=== PATIENT | male | born 2000 | race Caucasian/White ===

== ENCOUNTER 2024-09-21 18:39 | Emergency (ER) | payer SELFPAY ==
[2024-09-22] MEDS ORDERED: CLOT15CR73 TOP (05:25)
[2024-09-22] MEDS ORDERED: FLUC100T PO (05:26)
== END 2024-09-21 19:50 | disposition left against medical advice (07) ==
LOC: ER 18:40
DX: H92.09 Otalgia, unspecified ear (principal); Z53.21 Procedure and treatment not carried out due to patient leaving prior to being seen by health care provider

== ENCOUNTER 2024-09-22 05:05 | Emergency (ER) | payer MEDICAID ==
[~2024-09-22] VITALS: Ht 175.3 cm; Wt 54.0 kg
[2024-09-22 05:07] VITALS: BP 145/65; PULSE 89; RESP 15; TEMP 96.3; O2SAT 99
--- NOTE | 2024-09-22 05:20 | Physician Documentation ---
History of Present Illness ~ Chief Complaint: Foot pain Stated Complaint: FEET PAIN Time Seen by MD: 05:19 OK to notify your PCP?: Yes Source: patient, RN/MD, RN notes reviewed, old records Mode of Arrival: POV Exam Limitations: no limitations HPI This patient is a 23 y/o male who presents to ED with chief complaint of foot pain. Patient states he is here for peeling to the bottom of his feet and pain when walking. Patient is homeless and is on his feet walking most of the day. He does not have a primary care doctor, stating he is from out of town. Pateint was here earlier today for ear pain, but now complains of foot pain. Also requesting a sandwich. Patient denies any other associated symptoms at this time. Patient denies any other alleviating or exacerbating factors. Medication Reconciliation Allergies: Coded Allergies: No Known Allergies (Unverified , 09/22/24) Scheduled Clotrimazole/Betamet Diprop Cream* (Lotrisone Cream*), 1 APPLIC TOP Q12H Fluconazole* (Diflucan*), 1 TAB PO DAILY Review of Systems All Other Systems at this time: Reviewed and Negative Physical Exam Vital Signs: RN Vital Signs have been reviewed: Yes, Temperature: 96.3, Source: Temporal, Heart Rate: 89, Respiratory Rate: 15, BP: 145/65, Pulse Oximetry: 99, Weight: 54.050 Physical Exam General: The patient is well developed, well nourished, nontoxic appearing and is in no acute distress. Skin: [place], warm and dry with no rashes. HEENT: Head was normocephalic and atraumatic. Eyes - pupils equal, round, reactive to light and accommodation. Extraocular movements were intact. Conjunctivae were nonicteric. The mouth and oropharynx were clear with moist mucous membranes. There were no pharyngeal exudates or erythema. Neck: Supple and nontender. There was no jugular venous distention, l ymphadenopathy, thyromegaly or masses. Chest: Clear to auscultation bilaterally without wheezes, rales or rhonchi. No accessory muscle use. No dullness to percussion. Heart: Rate regular and rhythmic. S1, S2. No murmurs. Palpation of the chest wall was normal. No rubs or thrills. Abdomen: Soft, nontender and nondistended. Positive bowel sounds. No guarding or rebound. No hepatosplenomegaly or palpable masses. Extremities: Bilateral feet have redness between the toes. Sour, smelly odor from feet. No swelling. No open wounds. No cyanosis, clubbing or edema. The patient moves all extremities. Pulses were equal and symmetric. Neurologic: Motor and sensation grossly intact. A & O x4. Psychologic: Flat affect. Otherwise the patient was oriented to person, place and time. Progress Results/Orders Reviewed/noted all lab results: Yes Results/Orders Completed Orders - RODRIGO MORENO MD Naproxen Tablet (Naprosyn Tablet) (09/22/24 05:25) Fluconazole Tablet (Diflucan Tablet) (09/22/24 05:25) Vital Signs 09/22/24 05:07 Temp 96.3 Pulse 89 Resp 15 B/P (MAP) 145/65 Pulse Ox 99 Re-Evaluation Re-Evaluation : Re-Evaluation: Improved Progress Patient was seen and examined. Patient is given reassurance. Patient was just seen here hours ago complaining for ear pain. He is homeless new to the area traveling through [facility]. Patient comes 2nd time complaining of foot pain. On exam he has athlete's foot fungus no socks poor hygiene. Patient was given naproxen for his foot pain also given Diflucan . Prescription for antifungals was written as well as naproxen. Patient was then discharged home. Socks were provided. Medical Decision Making Additional info obtained from: old records Foot Diff Dx:Considerations: Include: Abrasion, Arthritis, Cellulitis, Contusion, Dislocation, DJD, Fracture-metatarsal, Fracture-phalynx, Fracture- tarsal, Gout, Sprain, Subungual hematoma, Other Departure Time of Disposition: 05:28 Disposition: HOME / SELF CARE / HOMELESS Impression: Primary Impression: Tinea pedis Qualified Codes: B35.3 - Tinea pedis Additional Impression: Homelessness Condition: Stable Discharge Instructions: Foot Pain Additional Instructions: Please follow up with the [facility], which can provide a variety of medical services and other resources. You may also look into staying at the [facility] here in [facility], for a place to stay. Paperwork with the information for these services is included in your paperwork. Prescriptions Fluconazole* (Diflucan*) 100 Mg Tablet 1 TAB PO DAILY for 5 Days, #5 TAB Prov: RODRIGO MORENO MD 09/22/24 Clotrimazole/Betamet Diprop Cream* (Lotrisone Cream*) 15 Gm Tube 1 APPLIC TOP Q12H for 7 Days, #30 GM apply to affected area(s) Prov: RODRIGO MORENO MD 09/22/24 Education Educated: Patient Educated regarding: diagnosis, treatment, need for follow up Signature Scribe Signature: Scribed for Rodrigo Moreno MD by Ayla Stone . 09/22/24 05:24 Attestation: The note accurately reflects work and decisions made by me.Rodrigo Moreno MD 09/22/24 05:20 RODRIGO MORENO MD Sep 22, 2024 05:20
[2024-09-22] MEDS ORDERED: CLOT15CR73 TOP (05:25)
[2024-09-22] MEDS ORDERED: FLUC100T PO (05:26)
== END 2024-09-22 06:10 | disposition home or self-care (01) ==
LOC: ER 05:05
DX: B35.3 Tinea pedis (principal); Z59.00 Homelessness unspecified; Z79.899 Other long term (current) drug therapy
CPT/HCPCS: 99283

== ENCOUNTER 2024-10-09 11:23 | Emergency (ER) | payer MEDICAID ==
[~2024-10-09] VITALS: Ht 177.8 cm; Wt 55.8 kg
[2024-10-09 11:32] VITALS: TEMP 98.9
[2024-10-09] MEDS ORDERED: SULF1TAB49 PO (11:45)
[2024-10-09] MEDS ORDERED: CEPH-585 PO (11:45)
--- NOTE | 2024-10-09 11:46 | Physician Documentation ---
History of Present Illness ~ Chief Complaint: Wound Stated Complaint: FOOT PAIN Time Seen by MD: 11:40 HPI This is a 24-year-old male that reports to the emergency department for evaluation of wounds to bilateral feet. Reports that he feels like they might be bug bites or spider bites. Wound to the dorsal aspect of the left foot has purulent drainage. Patient denies fevers chills nausea vomiting or any other symptoms today. Reports that he is living at the [facility] he is unsure if he has been exposed to MRSA or not. This prior to discharge, the patient reported that he would like information on suicide prevention. A conversation regarding this the patient says that he feels suicidal and has developed a plan of stabbing himself. Patient does not want to hurt anyone else just himself at this time. Tetanus within 5 years?: Yes Medication Reconciliation Allergies: Coded Allergies: No Known Allergies (Unverified , 09/22/24) Scheduled Cephalexin*Monohydrate* (Keflex*), 1 CAP PO QID Sulfamethoxazole/Trimethoprim (Bactrim Ds Tablet), 1 TAB PO Q12H Review of Systems ROS As stated above in the HPI, otherwise all systems are reviewed and negative. Physical Exam Vital Signs: Temperature: 98.9, Source: Temporal, Heart Rate: 90, Respiratory Rate: 16, BP: 112/75, Pulse Oximetry: 99, Weight: 55.800 Physical Exam VITALS: Reviewed and as above. GENERAL: Alert, no apparent distress. HEENT: Normocephalic, atraumatic, PERRL, EOMI, dry mucosa, no erythema RESPIRATORY: Lungs clear, normal breath sounds, no respiratory distress. CHEST: No accessory muscle use, no retractions CV: Regular rate, rhythm, no edema, no murmur, No: JVD GI: Soft, non-tender, bowels sounds present, no rebound, guarding, or rigidity BACK: No CVA tenderness, or swelling MUSCULOSKELETAL No deformities, no edema SKIN: Warm and dry, erythema and edema noted to the dorsal aspect of bilateral feet. Purulent drainage to the wound on the dorsal aspect of the left foot. NEURO: Oriented x4, No motor or sensory deficit PSYCH: Normal mood and affect, no agitation Progress Progress Note 1. This patient presents with a painful fluid pocket with fluctuance and surrounding induration and erythema, concerning for an abscess of left forearm. The abscess was cleaned and purulence was expressed. There is no lymphangitic spread visible. Low concern for osteomyelitis. Patient is not immunocompromised, and there is no bullae, pain out of proportion, or rapid progression concerning for necrotizing fasciitis. Patient to be discharged home with Bactrim and Keflex with follow up with their PMD. Patient will return to the emergency department with any worsening or recurrent symptoms or any additional concerning symptoms that we discussed here today i.e. fevers chills nausea vomiting or any other concerning symptoms. Patient will follow up with primary care provider. Patient will return to the emergency department if he has any worsening of his current symptoms or any additional concerning symptoms that we discussed here today i.e. fever chills nausea vomiting increased swelling increased pain red streaking up extremity or any other concerning symptoms. 2. Patient reported suicidal ideation and a plan to commit suicide just prior to discharge. Patient underwent medical clearance for mental health evaluation. Transfer orders for [facility]: At this time there is no evidence of an emergent medical condition that would preclude (admission/transfer) to a psychiatric unit via [facility] protocol for further psychiatric, as well as medical evaluation and treatment. At this time I have no reason to believe that transfer via [facility] protocol would have serious medical compromise in the patient's health. Patient will be given 1st doses of antibiotics here in the emergency department since his discharge status has changed to inpatient for mental health evaluation. Patient seen by services. Resources given to patient. Deemed safe for discharge. Safety plan reviewed Results/Orders Results/Orders Medications Received in ER Medications (Trade) Dose Ordered Sig/Anupama Route PRN Reason Start Time Stop Time Status Last Admin Dose Admin (Keflex capsule) 500 mg ONCE ONCE PO 10/09/24 16:45 10/09/24 16:47 DC 10/09/24 17:10 500 MG (Septra DS tab) 1 tab ONCE ONCE PO 10/09/24 16:45 10/09/24 16:47 DC 10/09/24 17:10 1 TAB Vital Signs 10/09/24 11:32 Temp 98.9 Pulse 90 Resp 16 B/P (MAP) 112/75 Pulse Ox 99 Laboratory Tests Test 10/09/24 12:36 10/09/24 14:14 10/09/24 14:33 White Blood Count 11.8 H Red Blood Count 4.05 L Hemoglobin 12.3 L Hematocrit 37.2 L Mean Corpuscular Volume 91.7 Mean Corpuscular Hemoglobin 30.3 Mean Corpuscular Hemoglobin Concent 33.1 Red Cell Distribution Width 14.2 Platelet Count 195 Mean Platelet Volume 8.8 Neutrophils (%) (Auto) 79.0 H Lymphocytes (%) (Auto) 13.7 L Monocytes (%) (Auto) 6.0 Eosinophils (%) (Auto) 1.0 Basophils (%) (Auto) 0.3 Neutrophils # (Auto) 9.3 H Lymphocytes # (Auto) 1.6 Monocytes # (Auto) 0.7 Eosinophils # (Auto) 0.1 Basophils # (Auto) 0.0 CBC Comment Sodium Level 143 Potassium Level 3.6 Chloride Level 109 H Carbon Dioxide Level 28.8 Anion Gap 5 L Blood Urea Nitrogen 14 Creatinine 0.73 Estimated GFR/1.73 m2 > 90 BUN/Creatinine Ratio 19.2 Glucose Level 85 Calcium Level 8.4 L Albumin 3.0 L Thyroid Stimulating Hormone (TSH) 0.31 L Chemistry Comments Acetaminophen Level < 2.0 L Ethyl Alcohol Level < 10 Urine Specimen Description Non-specified Urine Color Yellow Urine Clarity Clear Urine pH 6.5 Urine Specific [place] 1.010 Urine Protein Negative Urine Glucose (UA) Negative Urine Ketones Negative Urine Occult Blood Negative Urine Nitrite Negative Urine Bilirubin Negative Urine Urobilinogen 1.0 Urine Leukocyte Esterase Negative Volume Urine Centrifuged 10 ml Urine Comment Urine Opiates Screen Negative Urine Methadone Screen Negative Urine Fentanyl Screen Negative Urine Barbiturates Screen Negative Urine Phencyclidine Screen Negative Urine Amphetamines Screen Negative Urine Benzodiazepines Screen Negative Urine Cocaine Screen Negative Urine Cannabinoids Screen Negative Drug Screen Comment SARS-CoV-2 Antigen (Rapid) Positive A Medical Decision Making Findings This patient presents with a painful fluid pocket with fluctuance and surrounding induration and erythema, concerning for an abscess of left forearm. The abscess was cleaned and purulence was expressed. There is no lymphangitic spread visible. Low concern for osteomyelitis. Patient is not immunocompromised, and there is no bullae, pain out of proportion, or rapid progression concerning for necrotizing fasciitis. Patient to be discharged home with Bactrim and Keflex with follow up with their PMD. Patient will return to the emergency department with any worsening or recurrent symptoms or any additional concerning symptoms that we discussed here today i.e. fevers chills nausea vomiting or any other concerning symptoms. Departure Disposition: HOME / SELF CARE / HOMELESS Impression: Primary Impression: Wound Additional Impressions: Abscess Edema Wound drainage Suicidal ideation Discharge Instructions: Skin Abscess, Suicidal Feelings: How to Help Yourself Additional Instructions: Referrals: NO PRIMARY CARE PROVIDER (PCP) Prescriptions Cephalexin*Monohydrate* (Keflex*) 500 Mg Capsule 1 CAP PO QID for 7 Days, #28 CAP Prov: LIBORIO LAU 10/09/24 Sulfamethoxazole/Trimethoprim (Bactrim Ds Tablet) 800 Mg-160 Mg Tablet 1 TAB PO Q12H for 10 Days, #20 TAB Prov: LIBORIO LAU 10/09/24 Education Educated: Patient Educated regarding: diagnosis, treatment, need for follow up Signature Scribe Signature: A Attestation: The note accurately reflects work and decisions made by me.Hong Gutierrez MD 10/09/24 18:26 Scribed for Emergency,Department by DANNIELLE Llanos . 10/09/24 11:45 LIBORIO LAU Oct 09, 2024 11:46 HONG GUTIERREZ MD Oct 09, 2024 18:26
[2024-10-09 12:49] LABS: MEAN PLATELET VOLUME 8.8 FL (7.4-10.4); RED CELL DISTRIBUTION WIDTH 14.2 % (11.5-14.5)
[2024-10-09 13:16] LABS: CREATININE 0.73 MG/DL (0.60-1.10); TOTAL CARBON DIOXIDE 28.8 MMOL/L (24-32); eCRCL 123 ML/MIN; eGFR > 90 ML/MIN
[2024-10-09 13:27] LABS: ETHANOL < 10 MG/DL (<10)
[2024-10-09 14:35] LABS: LEUKOCYTE ESTERASE ,URINE NEGATIVE (Neg); NITRITES, URINE NEGATIVE (Neg); OCCULT BLOOD,URINE NEGATIVE (Neg)
[2024-10-09 14:36] LABS: URINE AMPHETAMINE SCREEN NEGATIVE (Neg); URINE BARBITUATE SCREEN NEGATIVE (Neg); URINE BENZODIAZEPINES SCREEN NEGATIVE (Neg); URINE CANNABINOID SCREEN NEGATIVE (Neg); URINE COCAINE SCREEN NEGATIVE (Neg); URINE METHADONE SCREEN NEGATIVE (Neg); URINE OPIATE SCREEN NEGATIVE (Neg); URINE PHENCYCLIDINE SCREEN NEGATIVE (Neg)
[2024-10-09 14:37] LABS: UA COLLECTION TYPE NON-SPECIFIED
[2024-10-09] MEDS: sulfamethoxazole/trimethoprim DS (800/160mg) tablet PO ONE (17:10)
[2024-10-09 19:11] VITALS: BP 135/84; PULSE 76; RESP 18; O2SAT 96
[2024-10-10] MEDS ORDERED: SULF1TAB49 PO (09:30)
== END 2024-10-09 19:12 | disposition home or self-care (01) ==
LOC: ER 11:23
DX: U07.1 COVID-19 (principal); R60.9 Edema, unspecified; R45.851 Suicidal ideations
CPT/HCPCS: 36415; 80048; 80305; 80320; 80329; 81003; 84443; 85025; 87811; 99283

== ENCOUNTER 2024-10-10 07:38 | Emergency (ER) | payer MEDICAID ==
[~2024-10-10] VITALS: Ht 177.8 cm; Wt 66.0 kg
[~2024-10-10 07:38] MED LIST: CEPH-585 PO; SULF1TAB49 PO
[2024-10-10 07:44] VITALS: BP 134/83; PULSE 93; RESP 16; O2SAT 100
[2024-10-10] MEDS ORDERED: SULF1TAB49 PO (09:30)
--- NOTE | 2024-10-10 09:30 | Physician Documentation ---
History of Present Illness ~ Chief Complaint: Wound Re-Check Stated Complaint: SWOLLEN FEET Time Seen by MD: 09:16 Source: patient Mode of Arrival: Ambulatory Exam Limitations: no limitations HPI 24-year-old male with wound to his right foot with swelling and redness. Tetanus within 5 years?: Yes Medication Reconciliation Allergies: Coded Allergies: No Known Allergies (Unverified , 09/22/24) Scheduled Cephalexin*Monohydrate* (Keflex*), 1 CAP PO QID Sulfamethoxazole/Trimethoprim (Bactrim Ds Tablet), 1 TAB PO Q12H Past Medical History Past Medical History: No Pertinent History Past Surgical History: no surgical history Lives In: Homeless Occupation: unemployed Review of Systems All Other Systems at this time: Reviewed and Negative Integumentary: Reports: see HPI Physical Exam Vital Signs: RN Vital Signs have been reviewed: Yes, Temperature: 97.4, Source: Temporal, Heart Rate: 93, Respiratory Rate: 16, BP: 134/83, Pulse Oximetry: 100, Weight: 66.000 General Appearance: alert, WD/WN, no apparent distress Cardiovascular: regular rate, rhythm Respiratory: lungs clear, normal breath sounds, no respiratory distress Chest: no accessory muscle use Skin Erythema with induration to a centralized lesion to the right foot on the dorsal aspect. Good peripheral pulse sensation and circulation intact distally Progress Results/Orders Results/Orders Vital Signs 10/10/24 07:44 Temp 97.4 Pulse 93 Resp 16 B/P (MAP) 134/83 Pulse Ox 100 Medical Decision Making Findings Wound to top of foot with induration erythema and warmth cellulitis clean socks and dressing Differential Dx:Considerations: Include: Cellulitis Departure Time of Disposition: 09:28 Disposition: HOME / SELF CARE / HOMELESS Impression: Primary Impression: Cellulitis Condition: Stable Discharge Instructions: Wound Care, Adult Additional Instructions: Take antibiotics as prescribed keep dressing on wound continue to monitor and f ollow up with primary care or the [facility] Referrals: NO PRIMARY CARE PROVIDER (PCP) Prescriptions Sulfamethoxazole/Trimethoprim (Bactrim Ds Tablet) 800 Mg-160 Mg Tablet 1 TAB PO Q12H for 10 Days, #20 TAB Prov: HEATHER CASTREJON NP 10/10/24 Education Educated: Patient Educated regarding: diagnosis, treatment, need for follow up Signature Scribe Signature: No Scribe Attestation: The note accurately reflects work and decisions made by me.Heather SPICER 10/10/24 09:30 HEATHER CASTREJON NP Oct 10, 2024 09:30
[2024-10-10] MEDS: bacitracin 15gm ointment TP ONE (09:39)
[2024-10-10] MEDS: amox tr/potassium clavulanate 875/125mg TAB PO ONE (09:39)
[2024-10-10 09:43] VITALS: TEMP 97.4
== END 2024-10-10 09:45 | disposition home or self-care (01) ==
LOC: ER 07:39
DX: L03.115 Cellulitis of right lower limb (principal)
CPT/HCPCS: 99283

== ENCOUNTER 2024-10-12 09:33 | Emergency (ER) | payer MEDICAID ==
[~2024-10-12] VITALS: Ht 177.8 cm; Wt 67.5 kg
[2024-10-12 09:36] VITALS: BP 115/69; PULSE 89; RESP 16; TEMP 98.6; O2SAT 99
--- NOTE | 2024-10-12 09:47 | Physician Documentation ---
History of Present Illness ~ Chief Complaint: Foot pain Stated Complaint: FEET PAIN Time Seen by MD: 09:42 OK to notify your PCP?: Yes Source: patient Mode of Arrival: POV Exam Limitations: no limitations HPI 24-year-old male presents with wounds to the top of the left and right arch of the foot which both appeared a few days ago. He states a both started like a bug bite and then have opened and started draining however due to the location it appears to have been caused by ill-fitting shoes. He denies any fever, nausea, vomiting, diarrhea. Tetanus witin 5 years: Yes Medication Reconciliation Allergies: Coded Allergies: No Known Allergies (Unverified , 09/22/24) Scheduled Cephalexin*Monohydrate* (Keflex*), 1 CAP PO QID Cephalexin*Monohydrate* (Keflex*), 1 CAP PO Q8H Sulfamethoxazole/Trimethoprim (Bactrim Ds Tablet), 1 TAB PO Q12H Sulfamethoxazole/Trimethoprim (Bactrim Ds Tablet), 1 TAB PO Q12H Sulfamethoxazole/Trimethoprim (Septra Ds Tab), 1 TAB PO Q12H Past Medical History Past Medical History: No Pertinent History Past Surgical History: no surgical history Lives In: Homeless Occupation: unemployed Physical Exam Vital Signs: RN Vital Signs have been reviewed: Yes, Temperature: 98.6, Source: Temporal, Heart Rate: 89, Respiratory Rate: 16, BP: 115/69, Pulse Oximetry: 99, Weight: 67.500 Oxygen Flow Rate: 0 Pulse Oximetry Reflects: adequate oxygenation Physical Exam General: Alert, no distress. HEENT: No injection, moist mucous membranes. Neck: Full range of motion. Respiratory: No respiratory distress, equal chest rise and fall. Chest: No accessory muscle use. Cardiovascular: Regular rate and rhythm. Gastrointestinal: Nondistended. Extremities: Normal range of motion, no deformity. Neurologic: Oriented x4. Psychiatric: Normal mood and affect. Skin: Normal color, warm and dry. Bilateral, symmetrical open/draining wounds to top of feet at the medial superior portion of the arch of the foot overlying the tarsal bones. Both sites have areas of erythema with no clear line of demarcation. there is warmth and serous drainage. Progress Results/Orders Reviewed/noted all lab results: Yes Results/Orders Completed Orders - JES BRINKP Bacitracin Ointment (Bacitracin Ointment (10/12/24 09:45) Sulfamethox/Trimetho. Ds Tab (Septra Ds (10/12/24 09:45) Cephalexin Capsule (Keflex Capsule) (10/12/24 09:45) Vital Signs 10/12/24 09:36 Temp 98.6 Pulse 89 Resp 16 B/P (MAP) 115/69 Pulse Ox 99 O2 Flow Rate 0 Medical Decision Making Additional info obtained from: old records Findings 24-year-old male with bilateral foot wounds. He was wearing [facility] socks and large crocs. There is localized erythema and warmth but there is no erythema spreading up the leg. His vital signs are stable and he is afebrile and nontoxic appearing. We discussed that he needs more supportive shoes. I ordered bacitracin to be applied to the sites with a Band-Aid over as well as gave 1st dose of Keflex and Bactrim. Due to the redness and serous drainage, I am suspicious for possible MRSA. There was no signs of sepsis. He is a homeless individual and does not have adequate hygiene. Given very strict return instructions if there was no improvement in 72 hours he needs to return. He agrees with this plan. Foot Diff Dx:Considerations: Include: Abrasion, Dislocation, Gout, Hematoma, Laceration, Neurovascular injury, Puncture, Septic Departure Disposition: 01 HOME / SELF CARE / HOMELESS Impression: Primary Impression: Cellulitis Condition: Stable Discharge Instructions: Cellulitis Additional Instructions: Please keep wounds clean and dry, apply the bacitracin to the wounds. Monitor for any signs of worsening redness despite antibiotic use as if this occurs please return immediately. Follow up with your primary care provider or the [facility] within the next 3 days. Return back here for any new or worsening symptoms. Referrals: NO PRIMARY CARE PROVIDER (PCP) Prescriptions Sulfamethoxazole/Trimethoprim (Septra Ds Tab) 800 Mg/160 Mg Tablet 1 TAB PO Q12H for 10 Days, #20 TAB Prov: JES BRINK 10/12/24 Cephalexin*Monohydrate* (Keflex*) 500 Mg Capsule 1 CAP PO Q8H for 10 Days, #30 CAP Prov: JES BRINKP 10/12/24 Education Educated: Patient Educated regarding: diagnosis, treatment, prognosis, need for follow up Additional Comment Medical Screen Exam This patient recieved a medical screening examination. After reviewing the [facility]'s medical complaints with presenting symptoms and performing an appropriate physical examination, it was determined that no immediate life- threatening emergency medical condition is present. This individual is also not a women having contractions. Signature Scribe Signature: . Attestation: Scribed for Jes Brink Business Excellence Leader by Jes Miguel NP . 10/12/24 09:55 Parts of this note were created using [employer] voice recognition software program. While efforts were made to correct any mistakes made by this voice recognition software program, nonsensical phrases may remain in this note. In addition, there may be errors and syntax, grammar, content and spelling. JES BRINK ADVERTISING PROJECT MANAGER Oct 12, 2024 09:47
[2024-10-12] MEDS ORDERED: CEPH-585 PO (09:48)
[2024-10-12] MEDS ORDERED: SULF1TAB45 PO (09:48)
[2024-10-12] MEDS: bacitracin 15gm ointment TP ONE (09:52)
[2024-10-12] MEDS: sulfamethoxazole/trimethoprim DS (800/160mg) tablet PO ONE (09:52)
== END 2024-10-12 09:58 | disposition home or self-care (01) ==
LOC: ER 09:34
DX: L03.116 Cellulitis of left lower limb (principal); L03.115 Cellulitis of right lower limb
CPT/HCPCS: 99284

== ENCOUNTER 2024-10-21 09:26 | Emergency (ER) | payer MEDICAID ==
[~2024-10-21] VITALS: Ht 170.2 cm; Wt 64.0 kg
[~2024-10-21 09:26] MED LIST changes: +SULF1TAB45 PO
[2024-10-21 09:27] VITALS: BP 127/99; PULSE 100; RESP 18; TEMP 98.5; O2SAT 98
== END 2024-10-21 09:43 | disposition left against medical advice (07) ==
LOC: ER 09:26
DX: L55.9 Sunburn, unspecified (principal); Z53.21 Procedure and treatment not carried out due to patient leaving prior to being seen by health care provider

== ENCOUNTER 2024-10-26 07:22 | Emergency (ER) | payer MEDICAID ==
[~2024-10-26] VITALS: Ht 177.8 cm; Wt 67.5 kg
--- NOTE | 2024-10-26 07:55 | Physician Documentation ---
History of Present Illness ~ Chief Complaint: Mental Health Eval Stated Complaint: MH EVAL Time Seen by MD: 07:46 OK to notify your PCP?: Yes Source: patient, RN/MD, RN notes reviewed, old records Mode of Arrival: POV, Ambulatory Exam Limitations: no limitations HPI This pleasant 24-year-old recently moved from [facility] and plans on going to [place]. Currently in [place] for two weeks or so. Patient has been seen multiple times for sunburn, foot cellulitis for which he took Bactrim and it is well healed. Also depression. Patient has not followed up with mental health. Patient states like before he wants to cut himself he is suicidal. Patient does not take medications he has not has a history of psychiatric medications per the patient. There was no change in his suicidal thoughts. He is homeless. Patient was otherwise in good health and has no medical complaints. Medication Reconciliation Allergies: Coded Allergies: No Known Allergies (Unverified , 09/22/24) Discontinued Medications Cephalexin*Monohydrate* (Keflex*), 1 CAP PO Q8H Discontinued Reason: Auto Discontinued Sulfamethoxazole/Trimethoprim (Bactrim Ds Tablet), 1 TAB PO Q12H Discontinued Reason: Auto Discontinued Sulfamethoxazole/Trimethoprim (Bactrim Ds Tablet), 1 TAB PO Q12H Discontinued Reason: Auto Discontinued Sulfamethoxazole/Trimethoprim (Septra Ds Tab), 1 TAB PO Q12H Discontinued Reason: Auto Discontinued Past Medical History Past Medical History: No Pertinent History Past Surgical History: no surgical history Smoking Status: Current every day smoker Alcohol Use: None Drug Use: methamphetamine Lives In: Homeless Occupation: unemployed Review of Systems All Other Systems at this time: Reviewed and Negative Physical Exam Vital Signs: RN Vital Signs have been reviewed: Yes, Temperature: 97.5, Source: Temporal, Heart Rate: 70, Respiratory Rate: 18, BP: 114/71, Pulse Oximetry: 99, Weight: 67.500 Oxygen Flow Rate: 0 Physical Exam General: The patient is well developed, well nourished, nontoxic appearing and is in no acute distress. Skin: [place], warm and dry with no rashes. HEENT: Head was normocephalic and atraumatic. Eyes - pupils equal, round, reactive to light and accommodation. Extraocular movements were intact. Conjunctivae were nonicteric. Neck: Supple and nontender. There was no jugular venous distention, Chest: Clear to auscultation bilaterally without wheezes, rales or rhonchi. Heart: Rate regular and rhythmic. S1, S2. No murmurs. Abdomen: Soft, nontender and nondistended. Positive bowel sounds. No guarding or rebound. Extremities: No cyanosis, clubbing or edema. The patient moves all extremities. Pulses were equal and symmetric. Neurologic: Motor sensory grossly intact Psychologic: The patient was oriented to person, place and time. The patient demonstrated four judgement and insight. Suicidal ideation, flat affect soft voice good eye contact Progress Progress Note Patient was seen and examined. Patient is given reassurance. Wounds are healed. As far as suicidal ideations patient is homeless has a access to mental health resources chooses not to use them. He also has access to the [employer]. Patient is aware of or resources locally but nevertheless patient received handouts for homeless people including social contact worker and mental health resources. Patient was given a meal prior to discharge. Patient does not appear to be a danger to self or others despite being suicidal Results/Orders Reviewed/noted all lab results: Yes Results/Orders Orders - RODRIGO MORENO MD Cbc/Diff (10/26/24 07:37) Urinalysis (10/26/24 07:37) Drug Screen, Urine (10/26/24 07:37) Ethanol (10/26/24 07:37) TSH (10/26/24 07:37) Mh Med Rec (10/26/24 07:37) Regular Diet (10/26/24 Lunch) BMP (10/26/24 07:37) Close Observation Level (10/26/24 07:37) Covid19 Binax Poc Result Entry (10/26/24 07:37) Vital Signs 10/26/24 10/26/24 07:31 07:43 Temp 97.5 Pulse 70 Resp 18 B/P (MAP) 114/71 Pulse Ox 99 O2 Flow Rate 0 Re-Evaluation Re-Evaluation : Re-Evaluation: Unchanged Progress Patient was seen and examined. Patient was given reassurance. Patient has been seen multiple times this week appears unchanged from prior. Patient also has complained is suicidal ideation in the past. He was given resources. His wounds are healing specifically on his feet. He tolerated a meal prior to discharge. Patient was encouraged to follow up with our local resources in our community including mental health and breast [facility] where he can be formally evaluated by a psychiatrist and may be started on medications Medical Decision Making Additional info obtained from: old records Differential Dx:Considerations: Include: Alcohol abuse, Anxiety, Bipolar disorder, Conversion disorder, Depression, Personality disorder, Substance abuse, Suicidal, Other Departure Disposition: HOME / SELF CARE / HOMELESS Impression: Primary Impression: General medical exam Additional Impressions: Depression Qualified Codes: F32.A - Depression, unspecified Suicidal ideation Discharge Instructions: Suicidal Feelings: How to Help Yourself Referrals: NO PRIMARY CARE PROVIDER (PCP) Education Educated: Patient Educated regarding: diagnosis, treatment, prognosis, need for follow up, other Signature Scribe Signature: No scribed Attestation: The note accurately reflects work and decisions made by me.Rodrigo Moreno MD 10/26/24 07:54 RODRIGO MORENO MD Oct 26, 2024 07:54
[2024-10-26 08:19] VITALS: BP 114/71; PULSE 70; RESP 18; TEMP 97.5; O2SAT 99
[2024-10-26 09:00] LABS: URINE AMPHETAMINE SCREEN NEGATIVE (Neg); URINE BARBITUATE SCREEN NEGATIVE (Neg); URINE BENZODIAZEPINES SCREEN NEGATIVE (Neg); URINE CANNABINOID SCREEN POSITIVE (Neg); URINE COCAINE SCREEN NEGATIVE (Neg); URINE METHADONE SCREEN NEGATIVE (Neg); URINE OPIATE SCREEN NEGATIVE (Neg); URINE PHENCYCLIDINE SCREEN NEGATIVE (Neg)
== END 2024-10-26 08:18 | disposition home or self-care (01) ==
LOC: ER 07:22
DX: Z00.00 Encounter for general adult medical examination without abnormal findings (principal); F32.A Depression, unspecified; R45.851 Suicidal ideations; F17.200 Nicotine dependence, unspecified, uncomplicated; Z79.899 Other long term (current) drug therapy
CPT/HCPCS: 36415; 80305; 99285

== ENCOUNTER 2024-11-02 08:38 | Emergency (ER) | payer MEDICAID ==
[~2024-11-02] VITALS: Ht 177.8 cm; Wt 65.0 kg
[2024-11-02 08:40] VITALS: TEMP 98.9
[2024-11-02 09:13] VITALS: BP 110/66; PULSE 81; RESP 15; O2SAT 98
[2024-11-02] MEDS: LIDOcaine 1% 30ml preserv. free vial IJ ONE (09:40)
[2024-11-02] MEDS ORDERED: CEPH-585 PO (09:51)
--- NOTE | 2024-11-02 09:52 | Physician Documentation ---
History of Present Illness ~ Chief Complaint: Toe pain Stated Complaint: TOE PAIN Time Seen by MD: 09:27 Source: patient Mode of Arrival: Ambulatory Exam Limitations: no limitations HPI 24-year-old male with complaints of right ingrown toenail he has been experiencing for 2-3 days. Tetanus witin 5 years: Yes Medication Reconciliation Allergies: Coded Allergies: No Known Allergies (Unverified , 11/02/24) Scheduled Cephalexin*Monohydrate* (Keflex*), 1 CAP PO Q12H Past Medical History Past Medical History: No Pertinent History Past Surgical History: no surgical history Alcohol Use: None Drug Use: methamphetamine Lives In: Homeless Occupation: unemployed Review of Systems All Other Systems at this time: Reviewed and Negative Musculoskeletal: Reports: see HPI Physical Exam Vital Signs: Temperature: 98.9, Source: Oral, Heart Rate: 81, Respiratory Rate: 15, BP: 110/66, Pulse Oximetry: 98, Weight: 65.000 General Appearance: alert, WD/WN, no apparent distress Nail: tender, swelling, drainage, ingrown Nail Right lateral aspect of the great toenail ingrown Procedures Additional Procedures Procedure Note Ingrown toenail removed used 2 mL of lidocaine, scissors to lift the nail bed and forceps to remove 0.5 cm portion of the nail extending into the toe patient tolerated okay Progress Results/Orders Results/Orders Orders - HEATHER CASTREJON NP Laceration/I&D Tray Set Up (11/02/24 09:35) Completed Orders - HEATHER CASTREJON DISASSEMBLER Mupirocin Ointment (Bactroban Ointment) (11/02/24 09:35) Lidocaine 1% 30ml Vial (Xylocaine 1% Via (11/02/24 09:35) Medications Received in ER Medications (Trade) Dose Ordered Sig/Anupama Route PRN Reason Start Time Stop Time Status Last Admin Dose Admin (Bactroban ointment) 1 applic ONCE ONCE TP 11/02/24 09:35 11/02/24 09:36 DC 11/02/24 09:47 1 APPLIC Vital Signs 11/02/24 11/02/24 08:40 09:13 Temp 98.9 Pulse 88 81 Resp 18 15 B/P (MAP) 114/78 110/66 (81) Pulse Ox 98 98 Medical Decision Making Findings Patient had ingrown toenail with erythema swelling and drainage patient lacks the ability to keep toe clean and dry as he is homeless. Patient was given risks and benefits of partial toenail removal which he agreed upon. Procedure tolerated fair. Antibiotic ointment simple dressing and antibiotics p.o. Departure Time of Disposition: 09:50 Disposition: 01 HOME / SELF CARE / HOMELESS Impression: Primary Impression: Ingrown toenail of right foot Condition: Stable Discharge Instructions: Ingrown Toenail Additional Instructions: Keep ointment and Band-Aid on toenail take antibiotics as prescribed follow up with urgent care [facility] Referrals: NO PRIMARY CARE PROVIDER (PCP) Prescriptions Cephalexin*Monohydrate* (Keflex*) 500 Mg Capsule 1 CAP PO Q12H for 10 Days, #20 CAP Prov: HEATHER CASTREJON NP 11/02/24 Education Educated: Patient Educated regarding: diagnosis, treatment, need for follow up Signature Scribe Signature: No scribe Attestation: The note accurately reflects work and decisions made by me.Heather SPICER 11/02/24 09:51 HEATHER CASTREJON NP Nov 02, 2024 09:52
== END 2024-11-02 10:44 | disposition home or self-care (01) ==
LOC: ER 08:39
DX: L60.0 Ingrowing nail (principal)
CPT/HCPCS: 11730; 11750; 99284

== ENCOUNTER 2024-11-03 09:03 | Emergency (ER) | payer MEDICAID ==
[~2024-11-03] VITALS: Ht 177.8 cm; Wt 65.4 kg
[~2024-11-03 09:03] MED LIST changes: -SULF1TAB45 PO; -SULF1TAB49 PO
[2024-11-03 09:08] VITALS: BP 112/68; PULSE 77; RESP 18; TEMP 98.3; O2SAT 97
--- NOTE | 2024-11-03 10:34 | Physician Documentation ---
History of Present Illness ~ Chief Complaint: Rash Stated Complaint: RASH Time Seen by MD: 09:57 HPI Patient is seen today with complaints of rash on his hands. Patient denies any chest pain or shortness of breath or abdominal pain or nausea, vomiting, diarrhea. Patient does admit to daily methamphetamine use. Medication Reconciliation Allergies: Coded Allergies: No Known Allergies (Unverified , 11/03/24) Scheduled Cephalexin*Monohydrate* (Keflex*), 1 CAP PO Q12H Past Medical History Past Medical History: No Pertinent History Past Surgical History: no surgical history Alcohol Use: None Drug Use: methamphetamine Lives In: Homeless Occupation: unemployed Review of Systems Constitutional: Denies: chills, fever, weakness Eyes: Denies: pain, blurred vision ENT: Denies: ear pain, nose pain, throat pain, mouth pain Respiratory: Denies: cough, shortness of breath Cardiovascular: Denies: chest pain, palpitations Gastrointestinal: Denies: abdominal pain, nausea, vomiting Genitourinary: Denies: burning, dysuria Male Genitalia: Denies: penile discharge, testicular pain Neurological: Denies: headache, dizziness Musculoskeletal: Denies: pain, swelling Integumentary: Denies: rash, lesions Allergic/Immunologic: Denies: hives, itching Hematologic/Lymphatic: Denies: no symptoms reported Psychiatric: Denies: depression, anxiety Physical Exam Vital Signs: Temperature: 98.3, Source: Oral, Heart Rate: 77, Respiratory Rate: 18, BP: 112/68, Pulse Oximetry: 97, Weight: 65.400 Oxygen Flow Rate: 0 Physical Exam General: Awake and Alert, no acute distress. HEENT: Conjunctiva pink, Sclera clear, Mucus Membranes moist. Neck: Supple without masses and tenderness. Resp: Unlabored. Lungs clear to auscultation bilaterally. Heart: Regular Rate and rhythm, normal S1 and S2 without murmur, rub or gallop. Extremities: No cyanosis,clubbing or edema. Skin: Warm and Dry. I do not appreciate any abnormality or rash or skin changes of the patient's hands. Patient does have what appears to be a peeling sunburn on his forearms without any sign of bacterial infection or significant injury. Progress Results/Orders Results/Orders Vital Signs 11/03/24 09:08 Temp 98.3 Pulse 77 Resp 18 B/P (MAP) 112/68 Pulse Ox 97 O2 Flow Rate 0 Medical Decision Making Findings Patient is seen today with complaints of rash on his hands. Patient denies any chest pain or shortness of breath or abdominal pain or nausea, vomiting, diarrhea. Patient does admit to daily methamphetamine use. Patient was informed that he does not appear to have any significant abnormality of his hands or any rash. Patient does have what appears to be excoriations and scratches and peeling sunburn of his upper arms. Patient will follow up with primary care for further eval and treatment and consult. Return to ED with any worsening, concerning or changing symptoms. Departure Disposition: HOME / SELF CARE / HOMELESS Impression: Primary Impression: Excoriation Additional Impression: Burn from the sun Condition: Stable Additional Instructions: Patient was informed that he does not appear to have any significant abnormality of his hands or any rash. Patient does have what appears to be excoriations and scratches and peeling sunburn of his upper arms. Patient will follow up with primary care for further eval and treatment and consult. Return to ED with any worsening, concerning or changing symptoms. Referrals: NO PRIMARY CARE PROVIDER (PCP) Signature Scribe Signature: No scribe Attestation: No scribe FALLON LEVI PAC Nov 03, 2024 10:34
== END 2024-11-03 10:56 | disposition home or self-care (01) ==
LOC: ER 09:04
DX: S60.512A Abrasion of left hand, initial encounter (principal); S60.511A Abrasion of right hand, initial encounter; F15.90 Other stimulant use, unspecified, uncomplicated; Z59.00 Homelessness unspecified; X58.XXXA Exposure to other specified factors, initial encounter; Y93.89 Activity, other specified; Y92.89 Other specified places as the place of occurrence of the external cause; Y99.8 Other external cause status
CPT/HCPCS: 99282

== ENCOUNTER 2024-11-09 19:01 | Emergency (ER) | payer MEDICAID ==
[~2024-11-09] VITALS: Ht 177.8 cm; Wt 65.3 kg
[2024-11-09] MEDS ORDERED: CLOT15CR73 TOP (23:20)
--- NOTE | 2024-11-09 23:20 | Physician Documentation ---
History of Present Illness ~ Chief Complaint: Foot pain Stated Complaint: FEET PAIN Time Seen by MD: 19:42 HPI 24-year-old male sheltered returns to the emergency department with same presenting complaint that he eloped from earlier in the day. Reports that his feet are dirty and sore from walking in his Crocs. Denies acute illness or injury. Requesting evaluation and cleansing of his feet. There was no obvious lacerations, contusions or deformities. Both feet are moderately covered in dirt and debris to the dorsal and plantar surface. Tetanus witin 5 years: Yes Medication Reconciliation Allergies: Coded Allergies: No Known Allergies (Unverified , 11/03/24) Scheduled Cephalexin*Monohydrate* (Keflex*), 1 CAP PO Q12H Clotrimazole/Betamet Diprop Cream* (Lotrisone Cream*), 1 APPLIC TOP Q12H Past Medical History Past Medical History: No Pertinent History Past Surgical History: no surgical history Alcohol Use: None Drug Use: methamphetamine Lives In: Homeless Occupation: unemployed Physical Exam Vital Signs: Temperature: 98.4, Source: Temporal, Heart Rate: 88, Respiratory Rate: 16, BP: 117/72, Pulse Oximetry: 98, Weight: 65.300 Oxygen Flow Rate: 0 General Appearance: alert, no apparent distress, other (Disheveled) Head: normal inspection EENT: PERRL/EOMI Neck: non-tender Respiratory: no respiratory distress Cardiovascular: normal peripheral pulses Hips: normal inspection Legs: normal inspection Ligaments: normal Ankles: normal inspection Feet: normal ROM, no evidence of injury, pain, soft tissue tenderness; No: abrasions/lacerations, bone tenderness, deformity, ecchymosis, joint effusion, limited ROM, swelling Nail: normal inspection Nail Bed: normal inspection Distal Function: no motor deficit Skin: other (No obvious skin breakdown yet mild erythema noted without suspicio n for cellulitis to the plantar surface.) Lymphatic: normal inspection Neurologic: oriented x4 Psychiatric: other (Blunt affect) Progress Results/Orders Results/Orders Vital Signs 11/09/24 11/09/24 19:28 23:29 Temp 98.4 98.6 Pulse 88 86 Resp 16 18 B/P (MAP) 117/72 118/70 Pulse Ox 98 99 O2 Flow Rate 0 Medical Decision Making Additional Comment 24-year-old on sheltered male received foot care in the emergency department consisting of warm water and soap cleansing, sock application and discharge prescription for clotrimazole. Patient's safely discharged in the emergency department a steady nonantalgic gait not requiring additional resources. Departure Disposition: 01 HOME / SELF CARE / HOMELESS Impression: Primary Impression: Bilateral foot pain Additional Impression: Tinea pedis Condition: Stable Additional Instructions: Please do your best to keep your feet cleansed and wear socks for comfort and support. Please obtain prescription for topical antifungal from pharmacy and begin as directed. Thank you for visiting emergency department of [facility]. Referrals: NO PRIMARY CARE PROVIDER (PCP) Prescriptions Clotrimazole/Betamet Diprop Cream* (Lotrisone Cream*) 15 Gm Tube 1 APPLIC TOP Q12H for 7 Days, #30 GM apply to affected area(s) Prov: FRANKLYN DONALDSON PAC 11/09/24 Education Educated: Patient Educated regarding: diagnosis Signature Scribe Signature: .. Attestation: . FRANKLYN DONALDSON PAC Nov 09, 2024 23:20
[2024-11-09 23:29] VITALS: BP 118/70; PULSE 86; RESP 18; TEMP 98.6; O2SAT 99
== END 2024-11-09 23:31 | disposition home or self-care (01) ==
LOC: ER 19:01
DX: B35.3 Tinea pedis (principal); M79.672 Pain in left foot; M79.671 Pain in right foot; F15.90 Other stimulant use, unspecified, uncomplicated; Z56.0 Unemployment, unspecified; Z59.00 Homelessness unspecified
CPT/HCPCS: 99282; 99283

== ENCOUNTER 2024-11-14 07:27 | Emergency (ER) | payer MEDICAID ==
[~2024-11-14 07:27] MED LIST changes: -CEPH-585 PO; +CLOT15CR73 TOP
[2024-11-15] MEDS ORDERED: NO HOME MEDS (19:14)
[2024-11-15] MEDS ORDERED: NALO4SPR BOTHNARES (21:44)
== END 2024-11-14 07:35 | disposition left against medical advice (07) ==
LOC: ER 07:27
DX: M79.673 Pain in unspecified foot (principal); Z53.21 Procedure and treatment not carried out due to patient leaving prior to being seen by health care provider

== ENCOUNTER 2024-11-15 19:03 | Emergency (ER) | payer MEDICAID ==
[~2024-11-15] VITALS: Ht 177.8 cm; Wt 62.0 kg
[2024-11-15 19:07] VITALS: TEMP 98.6
[2024-11-15] MEDS ORDERED: NO HOME MEDS (19:14)
--- NOTE | 2024-11-15 19:15 | Physician Documentation ---
History of Present Illness ~ Chief Complaint: Overdose Stated Complaint: INGESTION ERROR Time Seen by MD: 19:06 HPI 24-year-old person, prefers female pronouns, presenting with an overdose Per EMS, the patient was found down, unresponsive and not breathing, pinpoint pupils. They were given intranasal Narcan, an NPA was placed and temporarily bagged. They were then given IM Narcan, woke up and took out the MPA and started breathing. They did vomit. Here in the ED, the patient reports stomach pain and nausea. They tell me this was an accidental overdose, deny suicidal intent or self-harm attempt. They did smoke fentanyl. They do not normally use fentanyl. Medication Reconciliation Allergies: Coded Allergies: No Known Allergies (Unverified , 11/15/24) Scheduled Naloxone HCl (Narcan), 1 SPRAYS BOTHNARES ONCE Miscellaneous Medications Home Med List (No Home Medications), (Reported) Discontinued Medications Cephalexin*Monohydrate* (Keflex*), 1 CAP PO Q12H Discontinued Reason: Auto Discontinued Clotrimazole/Betamet Diprop Cream* (Lotrisone Cream*), 1 APPLIC TOP Q12H Discontinued Reason: ADR (Adverse Drug Rxn) Past Medical History Past Medical History: No Pertinent History Past Surgical History: no surgical history Alcohol Use: None Drug Use: methamphetamine Lives In: Homeless Occupation: unemployed Review of Systems Gastrointestinal: Reports: abdominal pain, nausea, vomiting Physical Exam Vital Signs: Temperature: 98.6, Source: Temporal, Heart Rate: 96, Respiratory Rate: 13, BP: 112/79, Pulse Oximetry: 100, Weight: 62.000 Physical Exam General: This is a thin young person, tearful, alert HEENT: Small amount of bleeding from the right nare. Pupils are 3 mm and equal Heart: Mild tachycardic, appears regular Lungs: normal work of breathing, normal oxygen saturation on room air. No current respiratory depression Abdomen: Soft, nondistended, no significant tenderness to palpation in all quadrants, no rebound or guarding, palpation does worsened nausea Extremities: No significant traumatic findings Neuro: Alert and oriented Psychiatric: Appears anxious, tearful, but is cooperative Progress Results/Orders Results/Orders Completed Orders - FRANKLYN STONE MD Ondansetron Inj. (Zofran 4mg/2ml Vial) (11/15/24 19:10) Vital Signs 11/15/24 11/15/24 11/15/24 19:07 20:08 21:00 Temp 98.6 Pulse 96 76 62 Resp 13 24 13 B/P (MAP) 112/79 121/81 (94) 111/76 (88) Pulse Ox 100 100 99 O2 Flow Rate 0 Medical Decision Making Differential Dx:Considerations: Include: Alcohol abuse, Anxiety, Drug Overdose- Accidental, Drug Overdose-Intentional, Substance abuse, Suidical gesture Additional Comment The patient presents with a fentanyl overdose requiring Narcan. They deny suicidal intent or intentional overdose. Here in the ED, they are awake and breathing normally. The main complaint is nausea. They were given Zofran. They will be observed for several hours for safety. After observation, the patient no further complaints or respiratory depression. They will be discharged home, were prescribed Narcan, counseled against using fentanyl, and return precautions given. Departure Time of Disposition: 21:43 Disposition: 01 HOME / SELF CARE / HOMELESS Impression: Primary Impression: Opiate overdose Condition: Improved Discharge Instructions: Opioid Overdose Referrals: NO PRIMARY CARE PROVIDER (PCP) Prescriptions Naloxone HCl (Narcan) 4 Mg/Actuation [place] 1 SPRAYS BOTHNARES ONCE for Opiate overdose for 14 Days, #1 EA 0 Refills Prov: FRANKLYN STONE MD 11/15/24 Education Educated: Patient Educated regarding: diagnosis, treatment, need for follow up Signature Scribe Signature: telma Attestation: FRANKLYN Valdez MD Nov 15, 2024 19:14
[2024-11-15] MEDS: ondansetron/PF 4mg/2ml inj IV ONE (19:21)
[2024-11-15 21:00] VITALS: BP 111/76; PULSE 62; RESP 13; O2SAT 99
[2024-11-15] MEDS ORDERED: NALO4SPR BOTHNARES (21:44)
== END 2024-11-15 21:59 | disposition home or self-care (01) ==
LOC: ER 19:03
DX: T40.601A Poisoning by unspecified narcotics, accidental (unintentional), initial encounter (principal); F15.90 Other stimulant use, unspecified, uncomplicated; Z56.0 Unemployment, unspecified; Z59.00 Homelessness unspecified; Z79.899 Other long term (current) drug therapy; Y92.89 Other specified places as the place of occurrence of the external cause
CPT/HCPCS: 96374; 99283; J2405

== ENCOUNTER 2024-11-25 12:49 | Emergency (ER) | payer MEDICAID ==
[~2024-11-25] VITALS: Ht 162.6 cm; Wt 63.6 kg
[~2024-11-25 12:49] MED LIST changes: -CLOT15CR73 TOP; +NALO4SPR BOTHNARES; +NO HOME MEDS
[2024-11-25 12:52] VITALS: BP 119/76; PULSE 100; RESP 16; TEMP 98.5; O2SAT 99
--- NOTE | 2024-11-25 14:40 | Physician Documentation ---
History of Present Illness ~ Chief Complaint: Mental Health Eval Stated Complaint: EVAL Time Seen by MD: 13:51 HPI Patient is seen today with complaints of coming down off of methamphetamines. Patient states he is very tired and just wants a place to rest and states he is hungry. Patient states he is not actually suicidal and that he just wants a place to rest. Patient is malingering. Patient denies any chest pain or shortness of breath and refused lab draw. Medication Reconciliation Allergies: Coded Allergies: No Known Allergies (Unverified , 11/15/24) Scheduled Naloxone HCl (Narcan), 1 SPRAYS BOTHNARES ONCE Miscellaneous Medications Home Med List (No Home Medications), (Reported) Past Medical History Past Medical History: No Pertinent History Past Surgical History: no surgical history Alcohol Use: None Drug Use: methamphetamine Lives In: Homeless Occupation: unemployed Review of Systems Constitutional: Denies: chills, fever, weakness Eyes: Denies: pain, blurred vision ENT: Denies: ear pain, nose pain, throat pain, mouth pain Respiratory: Denies: cough, shortness of breath Cardiovascular: Denies: chest pain, palpitations Gastrointestinal: Denies: abdominal pain, nausea, vomiting Genitourinary: Denies: burning, dysuria Male Genitalia: Denies: penile discharge, testicular pain Neurological: Denies: headache, dizziness Musculoskeletal: Denies: pain, swelling Integumentary: Denies: rash, lesions Allergic/Immunologic: Denies: hives, itching Hematologic/Lymphatic: Denies: no symptoms reported Psychiatric: Denies: depression, anxiety Physical Exam Vital Signs: Temperature: 98.5, Source: Temporal, Heart Rate: 100, Respiratory Rate: 16, BP: 119/76, Pulse Oximetry: 99, Weight: 63.640 Oxygen Flow Rate: 0 Physical Exam General: Awake and Alert, no acute distress. Patient is very sleepy, hypersomnolent. HEENT: Conjunctiva pink, Sclera clear, Mucus Membranes moist. Neck: Supple without masses and tenderness. Resp: Unlabored. Lungs clear to auscultation bilaterally. Heart: Regular Rate and rhythm, normal S1 and S2 without murmur, rub or gallop. Abdomen: Soft and non tender no organomegaly Extremities: No cyanosis,clubbing or edema. Skin: Warm and Dry. Progress Results/Orders Results/Orders Orders - FALLON LEVI PAC Cbc/Diff (11/25/24 14:05) Drug Screen, Urine (11/25/24 14:05) Ethanol (11/25/24 14:05) TSH (11/25/24 14:05) Mh Med Rec (11/25/24 14:05) BMP (11/25/24 14:05) Close Observation Level (11/25/24 14:05) Covid19 Binax Poc Result Entry (11/25/24 14:05) Regular Diet (11/25/24 Dinner) Vital Signs 11/25/24 12:52 Temp 98.5 Pulse 100 Resp 16 B/P (MAP) 119/76 Pulse Ox 99 O2 Flow Rate 0 Laboratory Tests Test 11/25/24 11:13 SARS-CoV-2 Antigen (Rapid) Negative Medical Decision Making Findings Patient is seen today with complaints of coming down off of methamphetamines. Patient states he is very tired and just wants a place to rest and states he is hungry. Patient states he is not actually suicidal and that he just wants a place to rest. Patient is malingering. Patient denies any chest pain or shortness of breath and refused lab draw. Patient is malingering and is not actually suicidal currently and patient admits to just wanting a place to rest and some food to eat as he states he is coming down off of methamphetamines in his very tired at this point in time. Patient will follow up with any worsening, concerning or changing symptoms. Patient was given a meal and allowed to rest for a short period of time. Departure Disposition: 01 HOME / SELF CARE / HOMELESS Impression: Primary Impression: Methamphetamine abuse Additional Impression: Malingering Condition: Stable Discharge Instructions: Methamphetamines Use Disorder Additional Instructions: Patient is malingering and is not actually suicidal currently and patient admits to just wanting a place to rest and some food to eat as he states he is coming down off of methamphetamines in his very tired at this point in time. Patient will follow up with any worsening, concerning or changing symptoms. Patient was given a meal and allowed to rest for a short period of time. Referrals: NO PRIMARY CARE PROVIDER (PCP) Signature Scribe Signature: No scribe Attestation: No scribe FALLON LEVI PAC Nov 25, 2024 14:40
== END 2024-11-25 14:59 | disposition home or self-care (01) ==
LOC: ER 12:50
DX: F15.10 Other stimulant abuse, uncomplicated (principal); Z76.5 Malingerer [conscious simulation]; Z20.822 Contact with and (suspected) exposure to COVID-19
CPT/HCPCS: 36415; 87811; 99283

== ENCOUNTER 2025-01-28 09:02 | Emergency (ER) | payer MEDICAID ==
[~2025-01-28] VITALS: Ht 177.8 cm; Wt 72.3 kg
[2025-01-28 09:15] VITALS: BP 120/76; PULSE 83; RESP 18; O2SAT 100
--- NOTE | 2025-01-28 09:19 | Physician Documentation ---
History of Present Illness ~ Chief Complaint: Medical Clearance Stated Complaint: MED CLEARANCE HPI Med clearance for detox facility. No medical complaints. Tetanus within 5 years?: Yes Medication Reconciliation Allergies: Coded Allergies: No Known Allergies (Unverified , 11/15/24) Scheduled Naloxone HCl (Narcan), 1 SPRAYS BOTHNARES ONCE Miscellaneous Medications Home Med List (No Home Medications), (Reported) Past Medical History Past Medical History: No Pertinent History Past Surgical History: no surgical history Alcohol Use: None Drug Use: methamphetamine Lives In: Homeless Occupation: unemployed Review of Systems All Other Systems at this time: Reviewed and Negative Physical Exam Vital Signs: RN Vital Signs have been reviewed: Yes, Temperature: 99.5, Source: Temporal, Heart Rate: 83, Respiratory Rate: 18, BP: 120/76, Pulse Oximetry: 100, Weight: 72.300 Oxygen Flow Rate: 0 Physical Exam Gen: no distress HEENT: PERRL, EOMI Pulm: no distress Cardiac: deferred Abdomen:deferred MSK: no deformity Neuro: nonfocal Psych: unremarkable Progress Results/Orders Results/Orders Vital Signs 01/28/25 09:15 Temp 99.5 Pulse 83 Resp 18 B/P (MAP) 120/76 Pulse Ox 100 O2 Flow Rate 0 Medical Decision Making Additional information obtaine: N/A Findings 24 year old male, no medical complaints. Medically clear for facility. Differential Dx:Considerations: Include: Other Departure Disposition: 01 HOME / SELF CARE / HOMELESS Impression: Primary Impression: General medical exam Condition: Stable Discharge Instructions: Medical Screening Exam Referrals: NO PRIMARY CARE PROVIDER (PCP) Signature Scribe Signature: . Attestation: . TANMAY BEARD MD Jan 28, 2025 09:19
[2025-01-28 09:31] VITALS: TEMP 99.5
== END 2025-01-28 09:35 | disposition home or self-care (01) ==
LOC: ER 09:04
DX: Z00.00 Encounter for general adult medical examination without abnormal findings (principal); F15.90 Other stimulant use, unspecified, uncomplicated; Z59.00 Homelessness unspecified; Z56.0 Unemployment, unspecified; Z79.899 Other long term (current) drug therapy
CPT/HCPCS: 99282